=== PATIENT | female | born 1950 | race Caucasian/White ===

== ENCOUNTER → 2016-11-08 | Outpatient (CLI) | payer OTHER ==
--- NOTE | 2016-11-08 11:36 | REPMRS ---
Patient History The patient states she had a clinical breast exam in Patient is postmenopausal. Family history of breast cancer in sister at age 40, breast cancer in maternal aunt at age 50 or over, prostate cancer in brother at age 48, and breast cancer in daughter at age 34. Took hormonal contraceptives for 1 month. Digital Woman Screen Mammo: November 08, 2016 - Exam #: [id number] Bilateral CC and MLO view(s) were taken. Technologist: Dinah Anderson, Technologist Prior study comparison: November 02, 2015, digital bilateral screening mammo, performed at [facility]. October 01, 2014, bilateral bilat screen digital mammo, performed at [facility] ([facility]). FINDINGS: There are scattered fibroglandular densities. There has been no change in the appearance of the mammogram from the prior studies. There is a mild amount of residual fibroglandular tissue which is fairly symmetric. There is no interval development of dominant mass, architectural distortion, or clustered microcalcification suggestive of malignancy. ASSESSMENT: BI-RADS/ACR category 1 mammogram. Negative. Recommendation Routine screening mammogram in 1 year (for women over age 40). This mammogram was interpreted with the aid of an FDA-approved computer-aided dectection system. Electronically Signed By: Andrew Wasserman MD 11/08/16 [id number]
== END ==
LOC: M WHC 10:49
PROVIDERS: ATTEND Family Medicine
DX: Z12.31 Encounter for screening mammogram for malignant neoplasm of breast (principal)

== ENCOUNTER 2016-12-29 18:22 | Day surgery (SDC) | payer OTHER ==
[~2016-12-29] VITALS: Ht 160 cm; Wt 65.8 kg
[2016-12-29] MEDS ORDERED: MORPHINE 4 MG/ML 1ML SYRINGE As Ordered ONE ×2 (18:51→19:41)
[2016-12-29 19:22] LABS: MEAN CORPUSCULAR HEMOGLOBIN 29.1 pg (27.0-33.0); MEAN CORPUSCULAR HGB CONC 34.2 g/dl (32.0-36.5); MEAN CORPUSCULAR VOLUME 85.1 fl (80.0-96.0); RED CELL DISTRIBUTION WIDTH 12.8 % (11.5-14.5); WHITE BLOOD COUNT 8.4 K/mm3 (4.0-10.0)
--- NOTE | 2016-12-29 19:26 | REP ---
Clinical: Trauma. Technique: AP and lateral views. Findings: There are fractures involving the proximal fibular diaphysis and distal tibial diaphysis. No subcutaneous emphysema or foreign body. Impression: Fractures of the proximal fibular and distal tibial shafts. Signed by Lee Tellez MD 12/29/2016 07:18 P
--- NOTE | 2016-12-29 19:27 | REP ---
Clinical: Trauma. Technique: AP and lateral views of the right ankle. Findings: There is an oblique fracture of the distal tibial diaphysis with approximately 11 mm of displacement. No subcutaneous emphysema or radiodense foreign body. Impression: Oblique fracture of the distal tibial diaphysis. Signed by Lee Tellez MD 12/29/2016 07:19 P
--- NOTE | 2016-12-29 19:28 | REP ---
Clinical: Trauma. Technique: AP and lateral views of the right knee. Findings: There is a comminuted nondisplaced fracture of the proximal fibular diaphysis. Age-related changes at the knee joint noted. No subcutaneous emphysema or radiodense foreign body. Impression: Comminuted nondisplaced fracture of the proximal fibular diaphysis. Signed by Lee Tellez MD 12/29/2016 07:20 P
[2016-12-29 19:34] LABS: ANION GAP 12 MEQ/L (8-16); BLOOD UREA NITROGEN 19 MG/DL (7-18); CALCIUM LEVEL 9.7 MG/DL (8.8-10.2); CARBON DIOXIDE LEVEL 24 MEQ/L (21-32); CHLORIDE LEVEL 104 MEQ/L (98-107); CREATININE FOR GFR 0.75 MG/DL (0.55-1.02); GLOMERULAR FILTRATION RATE > 60.0 (>45); GLUCOSE, FASTING 124 MG/DL (80-110); POTASSIUM SERUM 3.3 MEQ/L (3.5-5.1); SODIUM LEVEL 140 MEQ/L (136-145)
--- NOTE | 2016-12-29 19:46 | REP ---
Clinical: Preoperative assessment . Comparison: None . Findings: The mediastinum and cardiac silhouette are stable and within normal limits for portable technique. The lung alvarado are clear without acute consolidation, effusion, or pneumothorax. Skeletal structures are intact. Impression: Normal portable chest x-ray Signed by Lee Tellez MD 12/29/2016 07:37 P
[2016-12-29] MEDS ORDERED: ATEN25TA PO (19:59)
[2016-12-29] MEDS ORDERED: DRIS50002 PO (19:59)
[2016-12-29] MEDS ORDERED: KCL 10MEQ IN STERILE WATER 100ML As Ordered ONE (19:59)
[2016-12-29] MEDS ORDERED: POTA20TA PO ×2 (19:59)
[2016-12-29] MEDS ORDERED: AMLO5TAB2 PO (20:00)
[2016-12-29] MEDS ORDERED: CHLO25TA PO (20:00)
[2016-12-29] MEDS ORDERED: ATOR1TAB19 PO (20:00)
[2016-12-29] MEDS ORDERED: ASPI1TAB PO (20:00)
[2016-12-29] MEDS ORDERED: FISH1000 PO (20:03)
[2016-12-29] MEDS ORDERED: CO Q1CAP PO (20:03)
[2016-12-29] MEDS ORDERED: VITA500T88 PO (20:03)
[2016-12-29] MEDS ORDERED: VITMTA PO (20:03)
[2016-12-29] MEDS ORDERED: CALC600T10 PO (20:03)
[2016-12-29] MEDS ORDERED: POTASSIUM CHLORIDE 10 MEQ SR TABLET As Ordered ONE (20:13)
--- NOTE | 2016-12-29 20:33 | EDDOCDS ---
Nurse's Notes [facility] Name: Britta Mahmood Age: 66 yrs Sex: Female : 1950 Arrival Date: 12/29/2016 Time: 18:22 Bed 10 Private MD: Diagnosis: Displaced oblique fracture of shaft of right tibia-distal;Fracture of shaft of fibula-proximal, right Presentation: 12/29 18:42 Presenting complaint: EMS states: Patient was bowling and her right leg went one way js13 and she went the other. Patients right lower leg hurting. No immobilizer applied. Adult Sepsis Screening: The patient does not have new or worsening altered mentation. Patient's respiratory rate is less than 22. Systolic blood pressure is greater than 100. Patient has a qSOFA score of 0- Negative Sepsis Screen. Suicide/Homicide risk assessment- the patient denies having any suicidal and/or homicidal ideations and does not present with any other emotional, behavioral or mental health complaints. Status: Patient is not a service order dispatcher or dependent. Transition of care: patient was not received from another setting of care. Care prior to arrival: See EMS report. 18:42 Acuity: RK Level 3 js13 18:42 Method Of Arrival: Ambulance js13 Triage Assessment: 18:50 General: Appears uncomfortable, Behavior is appropriate for age, cooperative. Pain: js13 Location: right leg Pain currently is 8 out of 10 on a pain scale. Neurological: Level of Consciousness is awake, alert, Oriented to person, place, time. Respiratory: Airway is patent Respiratory effort is even, unlabored, Respiratory pattern is regular, symmetrical. Derm: Skin is pink, warm & dry. Musculoskeletal: Circulation, motion, and sensation intact Range of motion limited in right knee and right ankle Bony deformity noted of right leg. Historical: - Allergies: no known allergies; - Home Meds: 1. Klor-Con M20 20 mEq Oral TbTQ 1 tab 2 times per day 2. atenolol 25 mg Oral tab 1 tab once daily 3. Vitamin D Oral 50,000 unit monthly 4. chlorthalidone 25 mg Oral tab 1 tab once daily 5. amlodipine 5 mg Oral tab 1 tab once daily 6. atorvastatin 10 mg oral tab 1 tab once daily 7. aspirin 81 mg Oral tab 1 tab once daily 8. Vitamin C 500 mg Oral cpER daily 9. multivitamin Oral tab daily 10. Fish Oil 1,000 mg Oral cap twice a day 11. Calci-Chew 500 mg calcium (1,250 mg) Oral chew 12. CoQ-10 100 mg oral cap 2 tab daily - PMHx: Hypertension; Hypercholesterolemia; osteopenia; - PSHx: Adenoidectomy; Tonsillectomy; - Social history: Smoking status: Patient states was never smoker of tobacco. No barriers to communication noted, The patient speaks fluent Amharic. - Family history: Not pertinent. - : The pt / caregiver states he / she is not on anticoagulants. Home medication list is obtained from the patient. - Exposure Risk Screening:: None identified. Screenin:54 Screening information is obtained from the patient. Fall risk: At risk due to gait js13 disturbance, injury. Assistance ADL's: requires no assistance with activities of daily living. Abuse/DV Screen: The patient / caregiver reports he/she is: not in a situation that causes fear, pain or injury. Nutritional screening: No deficits noted. Advance Directives: There is no active DNR order. home support is adequate. Assessment: 19:48 General: Appears in no apparent distress, comfortable, Behavior is cooperative. mlc General: IV fluids infusing per order. Pain: Location: right rodríguez Pain currently is 5 out of 10 on a pain scale. Neurological: Level of Consciousness is awake, alert, obeys commands, Oriented to person, place, time. Respiratory: Airway is patent Respiratory effort is even, unlabored, Respiratory pattern is regular. Derm: Skin is normal, Swollen area noted on right rodríguez and anterior aspect of right ankle. Musculoskeletal: Bony deformity noted of right rodríguez. Vital Signs: 18:34 BP 152 / 72; Pulse 72; Resp 18; Temp 98.6(O); Pulse Ox 100% on R/A; Weight 65.77 kg; dem1 Height 5 ft. 3 in. (160.02 cm); Pain 9/10; 19:39 BP 142 / 66; Pulse 63; Resp 18; Pulse Ox 98% ; Pain 5/10; mlc 20:28 BP 137 / 65; Pulse 62; Resp 18; Temp 98.3(O); Pulse Ox 96% on R/A; Pain 5/10; joel 18:34 Body Mass Index 25.69 (65.77 kg, 160.02 cm) dem1 Vitals: 18:34 Log In Time N/A - ambulance arrival. dem1 ED Course: 18:23 Patient visited by Margarita Carter, Engraver Machine. deg 18:23 Patient moved to Waiting deg 18:24 Ivis Conn,JUSTYN is Primary Nurse. deg 18:24 Patient moved to 10 deg 18:29 [facility] Cain FNP [facility] le 18:35 Patient visited by Dominique Butler. dem1 18:37 Patient visited by Suzy Cain FNP. le 18:37 Patient visited by Suzy Cain FNP. le 18:44 Triage Initiated js13 18:54 The patient / caregiver is instructed regarding the plan of care and ED course. js13 18:54 Inserted saline lock: 18 gauge in left antecubital area and blood collected. The js13 patient tolerated the procedure well. No procedures done that require assistance. Labs drawn. (by ED staff). Sent per order to lab. 18:55 Patient visited by Ivis Conn RN. js13 18:55 [facility] Payment Agreement was scanned into [employer] and attached to record. ks16 18:59 Patient name changed from Britta\S\\S\Wood\S\ to Britta\S\ \S\Wood. EDMS 19:23 Sheridan oGnzalez RN is Primary Nurse. mlc 19:26 EKG done. (by ED staff). Reviewed by Suzy SORIA. mdr 19:27 Patient visited by Tab Greco PCA. mdr 19:34 Ag Stoll is Hospitalizing Provider. le 19:44 Tibia/Fibula Returned. EDMS 19:44 Ankle, Ap-Lat Returned. EDMS 19:44 Knee, Ap, Lat Returned. EDMS 19:50 Patient visited by Sheridan Gonzalez RN. mlc 19:55 Quentin Escoto DO is Attending Physician. cs11 20:14 Admission Orders was scanned into [employer] and attached to record. kb5 Administered Medications: 18:53 Drug: morphine 4 mg [morphine 4 mg/mL intravenous cartridge (1 mL)] Route: IVP; Site: js13 left antecubital; 19:39 Follow up: BP 142 / 66; Pulse 63 bpm; Resp 18 bpm; Pulse Ox 98% ; Pain 5/10 Adult; mlc Response: Pain is decreased 19:48 Drug: morphine 4 mg [morphine 4 mg/mL intravenous cartridge (1 mL)] Route: IVP; Site: mlc left antecubital; 19:48 Drug: NS 0.9% 1000 ml [sodium chloride 0.9 % intravenous solution] Route: IV; Rate: 100 mlc mL/hr; Site: left antecubital; 19:58 CANCELLED (Other Intervention Used): Potassium Chloride in 100cc sterile water 10 mEq le IV at 100 mL/hr once over 1 hrs 20:18 Drug: Potassium Chloride 20 mEq [potassium chloride ER 10 mEq tablet,extended release mlc (2 tabs)] Route: PO; Order Results: Lab Order: CBC; SPEC'M 12/29/16 18:41 Test: WHITE BLOOD COUNT; Value: 8.4; Range: 4.0-10.0; Units: K/mm3; Status: F Test: RED BLOOD COUNT; Value: 4.91; Range: 4.00-5.40; Units: M/mm3; Status: F Test: HEMOGLOBIN; Value: 14.3; Range: 12.0-16.0; Units: g/dl; Status: F Test: HEMATOCRIT; Value: 41.8; Range: 36.0-47.0; Units: %; Status: F Test: MEAN CORPUSCULAR VOLUME; Value: 85.1; Range: 80.0-96.0; Units: fl; Status: F Test: MEAN CORPUSCULAR HEMOGLOBIN; Value: 29.1; Range: 27.0-33.0; Units: pg; Status: F Test: MEAN CORPUSCULAR HGB CONC; Value: 34.2; Range: 32.0-36.5; Units: g/dl; Status: F Test: RED CELL DISTRIBUTION WIDTH; Value: 12.8; Range: 11.5-14.5; Units: %; Status: F Test: PLATELET COUNT, AUTOMATED; Value: 251; Range: 150-450; Units: k/mm3; Status: F Lab Order: BMP; SPEC'M 12/29/16 18:41 Test: GLUCOSE, FASTING; Value: 124; Range: 80-110; Abnormal: Above high normal; Units: MG/DL; Status: F Test: BLOOD UREA NITROGEN; Value: 19; Range: 7-18; Abnormal: Above high normal; Units: MG/DL; Status: F Test: CREATININE FOR GFR; Value: 0.75; Range: 0.55-1.02; Units: MG/DL; Status: F Test: GLOMERULAR FILTRATION RATE; Value: > 60.0; Range: >45; Status: F Test: SODIUM LEVEL; Value: 140; Range: 136-145; Units: MEQ/L; Status: F Test: POTASSIUM SERUM; Value: 3.3; Range: 3.5-5.1; Abnormal: Below low normal; Units: MEQ/L; Status: F Test: CHLORIDE LEVEL; Value: 104; Range: 98-107; Units: MEQ/L; Status: F Test: CARBON DIOXIDE LEVEL; Value: 24; Range: 21-32; Units: MEQ/L; Status: F Test: ANION GAP; Value: 12; Range: 8-16; Units: MEQ/L; Status: F Test: CALCIUM LEVEL; Value: 9.7; Range: 8.8-10.2; Units: MG/DL; Status: F Test Note: ; Units are mL/min/1.73 m2 Chronic Kidney Disease Staging per NKF: Stage I & II GFR >=60 Normal to Mildly Decreased Stage III GFR 30-59 Moderately Decreased Stage IV GFR 15-29 Severely Decreased Stage V GFR <15 Very Little GFR Left ESRD GFR <15 on [employer] SUPERVISOR Radiology Order: Tibia/Fibula Test: Tibia/Fibula REASON FOR EXAMINATION: Trauma; Clinical: Trauma.; ; Technique: AP and lateral views.; ; Findings:; There are fractures involving the proximal fibular diaphysis and distal tibial; diaphysis. No subcutaneous emphysema or foreign body.; ; Impression:; Fractures of the proximal fibular and distal tibial shafts.; ; ; Signed by; Lee Tellez MD 12/29/2016 07:18 P; Radiology Order: Knee, Ap, Lat Test: Knee, Ap, Lat REASON FOR EXAMINATION: Trauma; Clinical: Trauma.; ; Technique: AP and lateral views of the right knee.; ; Findings:; There is a comminuted nondisplaced fracture of the proximal fibular diaphysis.; Age-related changes at the knee joint noted. No subcutaneous emphysema or; radiodense foreign body.; ; Impression:; Comminuted nondisplaced fracture of the proximal fibular diaphysis.; ; ; Signed by; Lee Tellez MD 12/29/2016 07:20 P; Radiology Order: Ankle, Ap-Lat Test: Ankle, Ap-Lat REASON FOR EXAMINATION: Trauma; Clinical: Trauma.; ; Technique: AP and lateral views of the right ankle.; ; Findings:; There is an oblique fracture of the distal tibial diaphysis with approximately 11; mm of displacement. No subcutaneous emphysema or radiodense foreign body.; ; Impression:; Oblique fracture of the distal tibial diaphysis.; ; ; Signed by; Lee Tellez MD 12/29/2016 07:19 P; Outcome: 19:34 Decision to Hospitalize by Provider. le 20:28 Discharge Assessment: patient administered narcotics - yes. Patient was admitted to the [facility] or transferred to another facility. The following High Risk Discharge criteria are identified: None. Admitted to OR accompanied by nurse, via stretcher, with chart. Condition: unchanged. No special radiology studies were completed. Property :Personal belongings accompany Pt. 20:33 Patient left the ED. nov Signatures: Dispatcher [employer] EDMS Margarita Carter, Engraver Machine Unit deg Kathy Mott RN RN jan Bancroft, Kristopher, VENEER SAWYER VENEER SAWYER kb5 Suzy Cain, TURBINE TECHNICIAN TURBINE TECHNICIAN Dominique Vázquez1 Ivis Conn,RN RN js13 Quentin Escoto, DO cs11 Sheridan Gonzalez RN RN mlc Rick, Mitchell, VENEER SAWYER VENEER SAWYER Snehal Ho, Reg Reg ks16 MTDD
--- NOTE | 2016-12-29 20:33 | EDDOCDS ---
Physician Documentation [facility] Name: Britta Mahmood Age: 66 yrs Sex: Female : 1950 Arrival Date: 12/29/2016 Time: 18:22 Bed 10 Private MD: Disposition: 12/29/16 19:34 Hospitalization ordered by Ag Stoll for Observation. Preliminary diagnosis are Displaced oblique fracture of shaft of right tibia - distal, Fracture of shaft of fibula - proximal, right. - Bed requested for Admit. - Status is Observation. joel - Condition is Stable. - Problem is new. - Symptoms are unchanged. Historical: - Allergies: no known allergies; - Home Meds: 1. Klor-Con M20 20 mEq Oral TbTQ 1 tab 2 times per day 2. atenolol 25 mg Oral tab 1 tab once daily 3. Vitamin D Oral 50,000 unit monthly 4. chlorthalidone 25 mg Oral tab 1 tab once daily 5. amlodipine 5 mg Oral tab 1 tab once daily 6. atorvastatin 10 mg oral tab 1 tab once daily 7. aspirin 81 mg Oral tab 1 tab once daily 8. Vitamin C 500 mg Oral cpER daily 9. multivitamin Oral tab daily 10. Fish Oil 1,000 mg Oral cap twice a day 11. Calci-Chew 500 mg calcium (1,250 mg) Oral chew 12. CoQ-10 100 mg oral cap 2 tab daily - PMHx: Hypertension; Hypercholesterolemia; osteopenia; - PSHx: Adenoidectomy; Tonsillectomy; - Social history: Smoking status: Patient states was never smoker of tobacco. No barriers to communication noted, The patient speaks fluent Chinese. - Family history: Not pertinent. - : The pt / caregiver states he / she is not on anticoagulants. Home medication list is obtained from the patient. - Exposure Risk Screening:: None identified. Vital Signs: 12/29 18:34 BP 152 / 72; Pulse 72; Resp 18; Temp 98.6(O); Pulse Ox 100% on R/A; Weight 65.77 kg / dem1 145 lbs; Height 5 ft. 3 in. (160.02 cm); Pain 9/10; 19:39 BP 142 / 66; Pulse 63; Resp 18; Pulse Ox 98% ; Pain 5/10; mlc 20:28 BP 137 / 65; Pulse 62; Resp 18; Temp 98.3(O); Pulse Ox 96% on R/A; Pain 5/10; joel 18:34 Body Mass Index 25.69 (65.77 kg, 160.02 cm) dem1 MDM: 18:31 IV Saline Lock ordered. le 18:31 morphine 4 mg IVP every 15 minutes; Document pain score/vitals after each dose (Hold if le SBP < 90mmHg) x2 ordered. 18:32 Tibia/Fibula Ordered. EDMS 18:54 Financial registration complete. ks16 18:55 [facility] Payment Agreement was scanned into [employer] and attached to record. ks16 19:12 Knee, Ap, Lat Ordered. EDMS 19:12 Ankle, Ap-Lat Ordered. EDMS 19:15 Undress patient ordered. le 19:16 ECG WITH READING ER PHYS+CARDIAG ordered. EDMS 19:16 CBC Ordered. EDMS 19:16 BMP Ordered. EDMS 19:17 Chest, 1 View Ordered. EDMS 19:37 BMP Reviewed. le 19:37 CBC Reviewed. le 19:38 NS 0.9% 1000 ml IV at 100 mL/hr continuous ordered. le 19:58 Potassium Chloride Extended Release Tablet 20 mEq PO once ordered. le 20:14 Admission Orders was scanned into [employer] and attached to record. kb5 Administered Medications: 18:53 Drug: morphine 4 mg [morphine 4 mg/mL intravenous cartridge (1 mL)] Route: IVP; Site: js13 left antecubital; 19:39 Follow up: BP 142 / 66; Pulse 63 bpm; Resp 18 bpm; Pulse Ox 98% ; Pain 5/10 Adult; mlc Response: Pain is decreased 19:48 Drug: morphine 4 mg [morphine 4 mg/mL intravenous cartridge (1 mL)] Route: IVP; Site: mlc left antecubital; 19:48 Drug: NS 0.9% 1000 ml [sodium chloride 0.9 % intravenous solution] Route: IV; Rate: 100 mlc mL/hr; Site: left antecubital; 19:58 CANCELLED (Other Intervention Used): Potassium Chloride in 100cc sterile water 10 mEq le IV at 100 mL/hr once over 1 hrs 20:18 Drug: Potassium Chloride 20 mEq [potassium chloride ER 10 mEq tablet,extended release mlc (2 tabs)] Route: PO; Signatures: Dispatcher [employer] EDMS Kathy Mott RN RN jan Bancroft, Nomi, SENIOR MAJOR GIFTS OFFICER SENIOR MAJOR GIFTS OFFICER kb5 Suzy Cain, IT SUPPORT CONSULTANT IT SUPPORT CONSULTANT Ivis MccainRN RN Quentin Kingsley, DO DO cs11 Snehal Altman, Reg Reg ks16 Sheridan Gonzalez RN [facility] The chart was reviewed and I authenticate all verbal orders and agree with the evaluation and treatment provided.Corrections: (The following items were deleted from the chart) 19:12 18:32 Knee, complete+XR ordered. EDMS EDMS 19:13 18:32 Ankle, complete+XR ordered. EDMS EDMS 19:58 19:56 Potassium Chloride in 100cc sterile water 10 mEq IV at 100 mL/hr once over 1 hrs le ordered. cs11 19:58 19:57 Potassium Chloride in 100cc sterile water 10 mEq IV at 100 mL/hr once over 1 hrs le ordered. le Attachments: 18:55 [facility] Payment Agreement ks16 20:14 Admission Orders kb5 MTDD
[2016-12-29] MEDS ORDERED: PROPOFOL 200 MG/20 ML VIAL As Ordered ONE ×2 (20:37→22:01)
[2016-12-29] MEDS ORDERED: fentaNYL 100 MCG/2 ML INJECTION (J3010) As Ordered ONE (20:37)
[2016-12-29] MEDS ORDERED: LIDOCAINE 2% INJ 100 MG/5 ML SDV (FOR ANES.) As Ordered ONE (20:37)
[2016-12-29] MEDS ORDERED: MIDAZOLAM INJ 2 MG/2 ML VIAL (J2250) As Ordered ONE (20:37)
[2016-12-29] MEDS ORDERED: ceFAZolin 1GM INJ (J0690) As Ordered ONE (20:47)
[2016-12-29] MEDS ORDERED: ASPIRIN 81 MG CHEW TABLET PO SCH (21:00)
[2016-12-29] MEDS ORDERED: ATORVASTATIN 10 MG TAB PO SCH (21:00)
[2016-12-29] MEDS ORDERED: amLODIPine 5 MG TAB PO SCH (21:00)
--- NOTE | 2016-12-29 21:33 | HPE ---
DATE OF ADMISSION: 12/29/2016 REASON FOR ADMISSION: Right tibia and fibula fracture. HISTORY OF PRESENT ILLNESS: She is a 66-year-old female who was bowling in [place], twisted her right leg, fell and complained of soreness, pain and could feel the bones moving. Transferred by ambulance from the [facility] to [facility], evaluated by the nurse practitioner in the emergency room and I was called because she was found to have a tibia and fibula fracture and to treat that injury. She only complains of isolated soreness in her right lower leg. Does not complain of any other injury. There is no loss of consciousness. Did not strike her head. Does not complain of numbness or tingling in her toes at all, just localized pain in the right leg. PAST MEDICAL HISTORY: Her past medical history is otherwise significant for high blood pressure and hypercholesterolemia and osteopenia. MEDICATIONS: - Klor-Con 20 mEq tablets one twice a day - atenolol 25 mg once a day - chlorthalidone 25 mg once a day - amlodipine 5 mg once a day - atorvastatin 10 mg once a day - baby aspirin one tablet once a day - vitamin C - multivitamin - fish oil - calcium - vitamin D - CoQ PAST SURGICAL HISTORY: She has had her tonsils and adenoids removed. She has had a dilatation and curettage and she has had a lymph node biopsy. Dr. Martinez cares for her medically. SOCIAL HISTORY: She is . She is here with her . She does not smoke or drink alcohol excessively. She lives up in the [place] area. Otherwise, she is healthy. When I examined her, she is very pleasant, alert female lying on the stretcher. She complains only of isolated soreness in her right leg. Blood pressure is 152/72, pulse 72, respirations 18, temperature 98.6, oxygen saturation is 100% on room air. She is 65.77 kg, 5 feet 3 inches tall, Body Mass Index (BMI) is 25.69. HEENT: Examination is normal. Normocephalic, atraumatic. Extraocular muscles are grossly normal. No evidence of any trauma. Upper extremities were atraumatic and without pain, tenderness, swelling or crepitance of her shoulders, arms, elbows, wrists or hands. ABDOMEN: Nontender. CHEST: Chest wall nontender. Chest was clear to auscultation. HEART: Regular. I did not detect a murmur. EXTREMITIES: Right lower extremity was tender with just mild swelling of the leg. The compartments were soft. The skin was intact. She had a good palpable dorsalis pedis pulse. She could actually dorsiflex or plantar flex her toes without excessive pain. Sensation was intact. Good capillary refill. LABORATORY DATA: White count was 8.4, hematocrit 41.8, platelets 251. Sodium was 140, potassium 3.3, chloride 104, bicarbonate 24, BUN 19, creatinine 0.75, glucose 124, calcium 9.7. X-rays of the right tibia and fibula show an oblique, distal one-third spiral tibia fracture with a proximal fibula fracture with hyperextension deformity and displacement. Her EKG was normal. IMPRESSION: Right tibia and fibula fracture in a 66-year-old otherwise fairly healthy female. I talked to her about the options of closed treatment with a cast or operative intervention, such as an IM nail or plate and screws. After some discussion about the plus or minus of casting versus surgery, she understands the cast treatment would be difficult to manage this in terms of getting a good anatomic reduction with prolonged immobilization with a cast, however, surgery would help us get this more anatomically reduced, but it introduces the risk of surgical intervention, such as infection, damage to nerves, blood vessels, anesthetic complications, amongst others. After some discussion back and forth about that she is agreeable to a surgical intervention in hopes of getting a better anatomic reduction and avoid the prolonged the use of a long leg cast. I would prefer a plate and screws rather than IM nail for this distal one-third fractures because of the better chance of getting more anatomic reduction. There is always the risk of damage to nerves and blood vessels, amongst others, and she understands that and signed the consent, witnessed by the nurse, and we planned to proceed to the operating room when it is available. She has been nothing by mouth since noon, so it has been eight hours. She does have a slightly low potassium at 3.3. I discussed this with the hospitalist and they think that this should be acceptable. We are going to give her 20 mEq orally of potassium right now in the emergency room, and we plan to give her 2 grams of Kefzol intravenously perioperatively.
[2016-12-29] MEDS ORDERED: ONDANSETRON 4MG/2ML VIAL (J2405) IV PRN ×2 (23:15→23:45)
[2016-12-29] MEDS ORDERED: fentaNYL 100 MCG/2 ML INJECTION (J3010) IV PRN (23:15)
[2016-12-29] MEDS ORDERED: LR 1,000 ML IV SCH (23:15)
[2016-12-29 23:30] VITALS: BP 164/76
[2016-12-29] MEDS: LR 1,000 ML IV SCH (23:45)
[2016-12-29] MEDS ORDERED: PERCOCET 5MG/325MG TAB PO PRN (23:45)
[2016-12-30] VITALS (8 sets, daily range): BP systolic 108–153; BP diastolic 56–70
[2016-12-30] MEDS: PERCOCET 5MG/325MG TAB PO PRN ×4 (00:20→12:47)
[2016-12-30] MEDS: MORPHINE 4 MG/ML 1ML SYRINGE IV PRN ×2 (03:24→14:41)
--- NOTE | 2016-12-30 05:25 | RO ---
DATE OF PROCEDURE: 12/29/2016 PREOPERATIVE DIAGNOSIS: Right unstable distal spiral tibia/fibula fracture. POSTOPERATIVE DIAGNOSIS: Right unstable distal spiral tibia/fibula fracture. PROCEDURE: Open reduction, internal fixation of a right tibia/fibula fracture using a synthes tibial locking plate. SURGEON: Gagan Booth MD SHADOWGRAPH SCALE OPERATOR: ANESTHESIA: Spinal. COMPLICATIONS: None. ESTIMATED BLOOD LOSS: Less than 50 mL. SPECIMENS: None. DESCRIPTION OF PROCEDURE: Antibiotics were given intravenously, preoperatively , then a successful spinal anesthetic was introduced. Straight catheter was placed, then removed. A tourniquet was placed on the right upper thigh and not inflated. Right lower extremity was then prepped and draped in the usual sterile fashion and elevated. Then, after appropriate time out, the tourniquet was inflated. An anterior incision was then made slightly curved medially. Bovie cautery was used to coagulate crossing vessels. Hematoma at the fracture site was identified and the fracture site explored and I very carefully did not violate any of the periosteum, but I was able to irrigate out the hematoma at the fracture site. Several small comminuted pieces of cortical bone were removed and then an open anatomic reduction was then performed and held with the bone clamp. Fluoroscopic guidance imaging in AP and lateral planes confirmed good reduction. Then, I placed an interfragmentary compression screw using the 3.5, then the 2.5 drill from anterior distal to posterior proximal with excellent purchase. I then chose an 8-hole distal tibial locking plate and it fit nicely across the fracture site with no need to contour the plate at all. I clamped the plate across the fracture site and got fluoroscopic imaging confirming good position. Then, I filled two screw holes on either side of the fracture site with the standard 3.5 cortical screws, then the proximal screw holes were filled with 3.5 cortical screws, then distally I filled several holes with locking screws. The distal tab was left open. A nice stable construct was noted. Fluoroscopic imaging at this point in the AP and lateral planes confirmed we had good reduction of the fracture and good placement of the hardware and screws. Copiously irrigated the wound. The tourniquet was released and we closed the deep subdermal tissues with interrupted #2-0 PDS suture. Skin was closed with shelley covered by Adaptic, dry sterile bulky dressing and then a short leg well-padded plaster cast was applied. Then, she was transferred to the recovery room in stable condition. There were intraoperative complications. CARLIN
[2016-12-30] MEDS ORDERED: PERC5TAB6 PO (06:45)
--- NOTE | 2016-12-30 08:04 | REP ---
Clinical: Fracture. Technique: Intraoperative fluoroscopic imaging. Findings: Images demonstrate the patient to be status post open reduction and fixation for distal tibial fracture. Satisfactory alignment and hardware placement noted. Total fluoroscopic time 14 seconds. Impression: Status post open reduction and fixation for distal tibial fracture. Signed by Lee Tellez MD 12/30/2016 07:55 A
[2016-12-30] MEDS ORDERED: ASPIRIN 81 MG CHEW TABLET PO SCH (09:00)
[2016-12-30] MEDS ORDERED: CHLORTHALIDONE 25 MG TAB PO SCH (09:00)
[2016-12-30] MEDS: LR 1,000 ML IV SCH (09:48)
--- NOTE | 2016-12-30 15:20 | ECGEPIP ---
Stationary ECG Study [facility] - ED Test Date: 2016-12-29 Pat Name: SABA WHITAKER Department: Room: [place] [address] Gender: F Social Work Coordinator: mr : 1950 Requested By: VICKIE SORIA Order Number: [id number] Reading MD: Corry Davis Measurements Intervals [place] Rate: 62 P: 60 NC: 172 QRS: 20 QRSD: 94 T: 6 QT: 399 QTc: 408 Interpretive Statements SINUS RHYTHM NSTTW ABNORMALITY NO PRIOR FOR COMPARISON Electronically Signed On 12-30-2016 15:19:58 EST by Corry Davis
--- NOTE | 2016-12-31 21:33 | EDDOCDS ---
Physician Documentation [facility] Name: Britta Mahmood Age: 66 yrs Sex: Female : 1950 Arrival Date: 12/29/2016 Time: 18:22 Bed 10 Private MD: Disposition: 12/29/16 19:34 Hospitalization ordered by Ag Stoll for Observation. Preliminary diagnosis are Displaced oblique fracture of shaft of right tibia - distal, Fracture of shaft of fibula - proximal, right. - Bed requested for Admit. - Status is Observation. joel - Condition is Stable. - Problem is new. - Symptoms are unchanged. Historical: - Allergies: no known allergies; - Home Meds: 1. Klor-Con M20 20 mEq Oral TbTQ 1 tab 2 times per day 2. atenolol 25 mg Oral tab 1 tab once daily 3. Vitamin D Oral 50,000 unit monthly 4. chlorthalidone 25 mg Oral tab 1 tab once daily 5. amlodipine 5 mg Oral tab 1 tab once daily 6. atorvastatin 10 mg oral tab 1 tab once daily 7. aspirin 81 mg Oral tab 1 tab once daily 8. Vitamin C 500 mg Oral cpER daily 9. multivitamin Oral tab daily 10. Fish Oil 1,000 mg Oral cap twice a day 11. Calci-Chew 500 mg calcium (1,250 mg) Oral chew 12. CoQ-10 100 mg oral cap 2 tab daily - PMHx: Hypertension; Hypercholesterolemia; osteopenia; - PSHx: Adenoidectomy; Tonsillectomy; - Social history: Smoking status: Patient states was never smoker of tobacco. No barriers to communication noted, The patient speaks fluent Macedonian. - Family history: Not pertinent. - : The pt / caregiver states he / she is not on anticoagulants. Home medication list is obtained from the patient. - Exposure Risk Screening:: None identified. Vital Signs: 12/29 18:34 BP 152 / 72; Pulse 72; Resp 18; Temp 98.6(O); Pulse Ox 100% on R/A; Weight 65.77 kg / dem1 145 lbs; Height 5 ft. 3 in. (160.02 cm); Pain 9/10; 19:39 BP 142 / 66; Pulse 63; Resp 18; Pulse Ox 98% ; Pain 5/10; mlc 20:28 BP 137 / 65; Pulse 62; Resp 18; Temp 98.3(O); Pulse Ox 96% on R/A; Pain 5/10; nov 18:34 Body Mass Index 25.69 (65.77 kg, 160.02 cm) dem1 MDM: 18:31 IV Saline Lock ordered. le 18:31 morphine 4 mg IVP every 15 minutes; Document pain score/vitals after each dose (Hold if le SBP < 90mmHg) x2 ordered. 18:32 Tibia/Fibula Ordered. EDMS 18:54 Financial registration complete. ks16 18:55 [facility] Payment Agreement was scanned into [employer] and attached to record. ks16 19:12 Knee, Ap, Lat Ordered. EDMS 19:12 Ankle, Ap-Lat Ordered. EDMS 19:15 Undress patient ordered. le 19:16 ECG WITH READING ER PHYS+CARDIAG ordered. EDMS 19:16 CBC Ordered. EDMS 19:16 BMP Ordered. EDMS 19:17 Chest, 1 View Ordered. EDMS 19:37 BMP Reviewed. le 19:37 CBC Reviewed. le 19:38 NS 0.9% 1000 ml IV at 100 mL/hr continuous ordered. le 19:58 Potassium Chloride Extended Release Tablet 20 mEq PO once ordered. le 20:14 Admission Orders was scanned into [employer] and attached to record. kb5 20:37 Tibia, Fibula lower leg Ordered. EDMS 12/30 21:11 T-Sheet-- Draft Copy was scanned into [employer] and attached to record. klr 22:13 ECG/EKG was scanned into [employer] and attached to record. klr 12/31 09:39 REGULAR DIET ordered. EDMS 09:41 PHYSICAL THERAPY EVAL ONLY ordered. EDMS Administered Medications: 12/29 18:53 Drug: morphine 4 mg [morphine 4 mg/mL intravenous cartridge (1 mL)] Route: IVP; Site: js13 left antecubital; 19:39 Follow up: BP 142 / 66; Pulse 63 bpm; Resp 18 bpm; Pulse Ox 98% ; Pain 5/10 Adult; mlc Response: Pain is decreased 19:48 Drug: morphine 4 mg [morphine 4 mg/mL intravenous cartridge (1 mL)] Route: IVP; Site: mlc left antecubital; 19:48 Drug: NS 0.9% 1000 ml [sodium chloride 0.9 % intravenous solution] Route: IV; Rate: 100 mlc mL/hr; Site: left antecubital; 19:58 CANCELLED (Other Intervention Used): Potassium Chloride in 100cc sterile water 10 mEq le IV at 100 mL/hr once over 1 hrs 20:18 Drug: Potassium Chloride 20 mEq [potassium chloride ER 10 mEq tablet,extended release mlc (2 tabs)] Route: PO; Signatures: Dispatcher [employer] EDMS Kathy Mott RN RN jan Bancroft, Kristopher, LETTERER LETTERER kb5 Suzy Cain, LIQUID SUGAR FORTIFIER LIQUID SUGAR FORTIFIER Ivis Mccain,RN RN Quentin Kingsley, DO DO cs11 Snehal Altman, Reg Reg ks16 Mona Guajardo Mandy RN mlc The chart was reviewed and I authenticate all verbal orders and agree with the evaluation and treatment provided.Corrections: (The following items were deleted from the chart) 19:12 18:32 Knee, complete+XR ordered. EDMS EDMS 19:13 18:32 Ankle, complete+XR ordered. EDDE EDMS 19:58 19:56 Potassium Chloride in 100cc sterile water 10 mEq IV at 100 mL/hr once over 1 hrs le ordered. cs11 19:58 19:57 Potassium Chloride in 100cc sterile water 10 mEq IV at 100 mL/hr once over 1 hrs le ordered. le Attachments: 18:55 [facility] [place] [facility] Payment Agreement ks16 20:14 Admission Orders kb5 12/30 21:11 T-Sheet-- Draft Copy klr 22:13 ECG/EKG klr Chart Complete MTDD
--- NOTE | 2016-12-31 21:33 | EDDOCDS ---
Nurse's Notes [facility] Name: Saba Mahmood Age: 66 yrs Sex: Female : 1950 Arrival Date: 12/29/2016 Time: 18:22 Bed 10 Private MD: Diagnosis: Displaced oblique fracture of shaft of right tibia-distal;Fracture of shaft of fibula-proximal, right Presentation: 12/29 18:42 Presenting complaint: EMS states: Patient was bowling and her right leg went one way js13 and she went the other. Patients right lower leg hurting. No immobilizer applied. Adult Sepsis Screening: The patient does not have new or worsening altered mentation. Patient's respiratory rate is less than 22. Systolic blood pressure is greater than 100. Patient has a qSOFA score of 0- Negative Sepsis Screen. Suicide/Homicide risk assessment- the patient denies having any suicidal and/or homicidal ideations and does not present with any other emotional, behavioral or mental health complaints. Status: Patient is not a service assistant or dependent. Transition of care: patient was not received from another setting of care. Care prior to arrival: See EMS report. 18:42 Acuity: RK Level 3 js13 18:42 Method Of Arrival: Ambulance js13 Triage Assessment: 18:50 General: Appears uncomfortable, Behavior is appropriate for age, cooperative. Pain: js13 Location: right leg Pain currently is 8 out of 10 on a pain scale. Neurological: Level of Consciousness is awake, alert, Oriented to person, place, time. Respiratory: Airway is patent Respiratory effort is even, unlabored, Respiratory pattern is regular, symmetrical. Derm: Skin is pink, warm & dry. Musculoskeletal: Circulation, motion, and sensation intact Range of motion limited in right knee and right ankle Bony deformity noted of right leg. Historical: - Allergies: no known allergies; - Home Meds: 1. Klor-Con M20 20 mEq Oral TbTQ 1 tab 2 times per day 2. atenolol 25 mg Oral tab 1 tab once daily 3. Vitamin D Oral 50,000 unit monthly 4. chlorthalidone 25 mg Oral tab 1 tab once daily 5. amlodipine 5 mg Oral tab 1 tab once daily 6. atorvastatin 10 mg oral tab 1 tab once daily 7. aspirin 81 mg Oral tab 1 tab once daily 8. Vitamin C 500 mg Oral cpER daily 9. multivitamin Oral tab daily 10. Fish Oil 1,000 mg Oral cap twice a day 11. Calci-Chew 500 mg calcium (1,250 mg) Oral chew 12. CoQ-10 100 mg oral cap 2 tab daily - PMHx: Hypertension; Hypercholesterolemia; osteopenia; - PSHx: Adenoidectomy; Tonsillectomy; - Social history: Smoking status: Patient states was never smoker of tobacco. No barriers to communication noted, The patient speaks fluent Faroese. - Family history: Not pertinent. - : The pt / caregiver states he / she is not on anticoagulants. Home medication list is obtained from the patient. - Exposure Risk Screening:: None identified. Screenin:54 Screening information is obtained from the patient. Fall risk: At risk due to gait js13 disturbance, injury. Assistance ADL's: requires no assistance with activities of daily living. Abuse/DV Screen: The patient / caregiver reports he/she is: not in a situation that causes fear, pain or injury. Nutritional screening: No deficits noted. Advance Directives: There is no active DNR order. home support is adequate. Assessment: 19:48 General: Appears in no apparent distress, comfortable, Behavior is cooperative. mlc General: IV fluids infusing per order. Pain: Location: right rodríguez Pain currently is 5 out of 10 on a pain scale. Neurological: Level of Consciousness is awake, alert, obeys commands, Oriented to person, place, time. Respiratory: Airway is patent Respiratory effort is even, unlabored, Respiratory pattern is regular. Derm: Skin is normal, Swollen area noted on right rodríguez and anterior aspect of right ankle. Musculoskeletal: Bony deformity noted of right rodríguez. Vital Signs: 18:34 BP 152 / 72; Pulse 72; Resp 18; Temp 98.6(O); Pulse Ox 100% on R/A; Weight 65.77 kg; dem1 Height 5 ft. 3 in. (160.02 cm); Pain 9/10; 19:39 BP 142 / 66; Pulse 63; Resp 18; Pulse Ox 98% ; Pain 5/10; mlc 20:28 BP 137 / 65; Pulse 62; Resp 18; Temp 98.3(O); Pulse Ox 96% on R/A; Pain 5/10; joel 18:34 Body Mass Index 25.69 (65.77 kg, 160.02 cm) dem1 Vitals: 18:34 Log In Time N/A - ambulance arrival. dem1 ED Course: 18:23 Patient visited by Margarita Carter, Physical Education Professor. deg 18:23 Patient moved to Waiting deg 18:24 Ivis Conn,JUSTYN is Primary Nurse. deg 18:24 Patient moved to 10 deg 18:29 [facility] Cain FNP [facility]. le 18:35 Patient visited by Dominique Butler. dem1 18:37 Patient visited by Suzy Cain FNP. le 18:37 Patient visited by Suzy Cain FNP. le 18:44 Triage Initiated js13 18:54 The patient / caregiver is instructed regarding the plan of care and ED course. js13 18:54 Inserted saline lock: 18 gauge in left antecubital area and blood collected. The js13 patient tolerated the procedure well. No procedures done that require assistance. Labs drawn. (by ED staff). Sent per order to lab. 18:55 Patient visited by Ivis Conn RN. js13 18:55 [facility] Payment Agreement was scanned into [employer] and attached to record. ks16 18:59 Patient name changed from Saba\S\\S\Wood\S\ to Saba\S\ \S\Wood. EDMS 19:23 Sheridan Gonzalez,JUSTYN is Primary Nurse. mlc 19:26 EKG done. (by ED staff). Reviewed by Suzy SORIA. mdr 19:27 Patient visited by Tab Greco PCA. mdr 19:34 Ag Stoll is Hospitalizing Provider. le 19:44 Tibia/Fibula Returned. EDMS 19:44 Ankle, Ap-Lat Returned. EDMS 19:44 Knee, Ap, Lat Returned. EDMS 19:50 Patient visited by Sheridan Gonzalez RN. mlc 19:55 Quentin Escoto DO is Attending Physician. cs11 20:14 Admission Orders was scanned into [employer] and attached to record. kb5 20:45 Chest, 1 View Returned. EDMS 02 21:11 T-Sheet-- Draft Copy was scanned into [employer] and attached to record. klr 22:13 ECG/EKG was scanned into [employer] and attached to record. klr 12/31 09:53 EKG-ADULT Returned. EDMS 09:54 Tibia, Fibula lower leg Returned. EDMS Administered Medications: 12/29 18:53 Drug: morphine 4 mg [morphine 4 mg/mL intravenous cartridge (1 mL)] Route: IVP; Site: js13 left antecubital; 19:39 Follow up: BP 142 / 66; Pulse 63 bpm; Resp 18 bpm; Pulse Ox 98% ; Pain 5/10 Adult; mlc Response: Pain is decreased 19:48 Drug: morphine 4 mg [morphine 4 mg/mL intravenous cartridge (1 mL)] Route: IVP; Site: mlc left antecubital; 19:48 Drug: NS 0.9% 1000 ml [sodium chloride 0.9 % intravenous solution] Route: IV; Rate: 100 mlc mL/hr; Site: left antecubital; 19:58 CANCELLED (Other Intervention Used): Potassium Chloride in 100cc sterile water 10 mEq le IV at 100 mL/hr once over 1 hrs 20:18 Drug: Potassium Chloride 20 mEq [potassium chloride ER 10 mEq tablet,extended release mlc (2 tabs)] Route: PO; Order Results: Lab Order: CBC; SPEC'M 12/29/16 18:41 Test: WHITE BLOOD COUNT; Value: 8.4; Range: 4.0-10.0; Units: K/mm3; Status: F Test: RED BLOOD COUNT; Value: 4.91; Range: 4.00-5.40; Units: M/mm3; Status: F Test: HEMOGLOBIN; Value: 14.3; Range: 12.0-16.0; Units: g/dl; Status: F Test: HEMATOCRIT; Value: 41.8; Range: 36.0-47.0; Units: %; Status: F Test: MEAN CORPUSCULAR VOLUME; Value: 85.1; Range: 80.0-96.0; Units: fl; Status: F Test: MEAN CORPUSCULAR HEMOGLOBIN; Value: 29.1; Range: 27.0-33.0; Units: pg; Status: F Test: MEAN CORPUSCULAR HGB CONC; Value: 34.2; Range: 32.0-36.5; Units: g/dl; Status: F Test: RED CELL DISTRIBUTION WIDTH; Value: 12.8; Range: 11.5-14.5; Units: %; Status: F Test: PLATELET COUNT, AUTOMATED; Value: 251; Range: 150-450; Units: k/mm3; Status: F Lab Order: GRACIE PAN 12/29/16 18:41 Test: GLUCOSE, FASTING; Value: 124; Range: 80-110; Abnormal: Above high normal; Units: MG/DL; Status: F Test: BLOOD UREA NITROGEN; Value: 19; Range: 7-18; Abnormal: Above high normal; Units: MG/DL; Status: F Test: CREATININE FOR GFR; Value: 0.75; Range: 0.55-1.02; Units: MG/DL; Status: F Test: GLOMERULAR FILTRATION RATE; Value: > 60.0; Range: >45; Status: F Test: SODIUM LEVEL; Value: 140; Range: 136-145; Units: MEQ/L; Status: F Test: POTASSIUM SERUM; Value: 3.3; Range: 3.5-5.1; Abnormal: Below low normal; Units: MEQ/L; Status: F Test: CHLORIDE LEVEL; Value: 104; Range: 98-107; Units: MEQ/L; Status: F Test: CARBON DIOXIDE LEVEL; Value: 24; Range: 21-32; Units: MEQ/L; Status: F Test: ANION GAP; Value: 12; Range: 8-16; Units: MEQ/L; Status: F Test: CALCIUM LEVEL; Value: 9.7; Range: 8.8-10.2; Units: MG/DL; Status: F Test Note: ; Units are mL/min/1.73 m2 Chronic Kidney Disease Staging per NKF: Stage I & II GFR >=60 Normal to Mildly Decreased Stage III GFR 30-59 Moderately Decreased Stage IV GFR 15-29 Severely Decreased Stage V GFR <15 Very Little GFR Left ESRD GFR <15 on MACHINE SHOP SPECIALIST Radiology Order: Tibia/Fibula Test: Tibia/Fibula REASON FOR EXAMINATION: Trauma; Clinical: Trauma.; ; Technique: AP and lateral views.; ; Findings:; There are fractures involving the proximal fibular diaphysis and distal tibial; diaphysis. No subcutaneous emphysema or foreign body.; ; Impression:; Fractures of the proximal fibular and distal tibial shafts.; ; ; Signed by; Lee Tellez MD 12/29/2016 07:18 P; Radiology Order: Knee, Ap, Lat Test: Knee, Ap, Lat REASON FOR EXAMINATION: Trauma; Clinical: Trauma.; ; Technique: AP and lateral views of the right knee.; ; Findings:; There is a comminuted nondisplaced fracture of the proximal fibular diaphysis.; Age-related changes at the knee joint noted. No subcutaneous emphysema or; radiodense foreign body.; ; Impression:; Comminuted nondisplaced fracture of the proximal fibular diaphysis.; ; ; Signed by; Lee Tellez MD 12/29/2016 07:20 P; Radiology Order: Ankle, Ap-Lat Test: Ankle, Ap-Lat REASON FOR EXAMINATION: Trauma; Clinical: Trauma.; ; Technique: AP and lateral views of the right ankle.; ; Findings:; There is an oblique fracture of the distal tibial diaphysis with approximately 11; mm of displacement. No subcutaneous emphysema or radiodense foreign body.; ; Impression:; Oblique fracture of the distal tibial diaphysis.; ; ; Signed by; Lee Tellez MD 12/29/2016 07:19 P; Radiology Order: EKG-ADULT Test: EKG-ADULT REASON FOR EXAMINATION: pre-op, medical clearance; Stationary ECG Study; [facility] - ED; ; Test Date: 2016-12-29; Pat Name: SABA [place] Department:; Room: [place] [address]; Gender: F Human Relations Professor: ; : 1950 Requested By: SUZY SORIA; Order Number: [id number] Reading MD: Corry Davis; Measurements; Intervals [place]; Rate: 62 P: 60; NH: 172 QRS: 20; QRSD: 94 T: 6; QT: 399; QTc: 408; Interpretive Statements; SINUS RHYTHM; NSTTW ABNORMALITY; NO PRIOR FOR COMPARISON; Electronically Signed On 12-30-2016 15:19:58 EST by Corry Davis; Radiology Order: Chest, 1 View Test: Chest, 1 View REASON FOR EXAMINATION: pre-op medical clearance; Clinical: Preoperative assessment .; ; Comparison: None .; ; Findings:; The mediastinum and cardiac silhouette are stable and within normal limits for; portable technique. The lung alvarado are clear without acute consolidation,; effusion, or pneumothorax. Skeletal structures are intact.; ; Impression:; Normal portable chest x-ray; ; ; Signed by; Lee Tellez MD 12/29/2016 07:37 P; Radiology Order: Tibia, Fibula lower leg Test: Tibia, Fibula lower leg REASON FOR EXAMINATION: DISTAL TIBIA FRACTURE RIGHT; Clinical: Fracture.; ; Technique: Intraoperative fluoroscopic imaging.; ; Findings:; Images demonstrate the patient to be status post open reduction and fixation for; distal tibial fracture. Satisfactory alignment and hardware placement noted.; ; Total fluoroscopic time 14 seconds.; ; Impression:; Status post open reduction and fixation for distal tibial fracture.; ; ; Signed by; Lee Tellez MD 12/30/2016 07:55 A; Outcome: 19:34 Decision to Hospitalize by Provider. justin 20:28 Discharge Assessment: patient administered narcotics - yes. Patient was admitted to the [facility] or transferred to another facility. The following High Risk Discharge criteria are identified: None. Admitted to OR accompanied by nurse, via stretcher, with chart. Condition: unchanged. No special radiology studies were completed. Property :Personal belongings accompany Pt. 20:33 Patient left the ED. joel Signatures: Dispatcher [employer] EDMS Margarita Carter, Physical Education Professor Unit deg Kathy Mott RN RN jan Bancroft, Kristopher, BIOMEDICAL TECHNICIAN BIOMEDICAL TECHNICIAN kb5 Suzy Cain, PUBLIC HEALTH VETERINARIAN PUBLIC HEALTH VETERINARIAN Dominique Vázquez dem1 Ivis ConnRN RN Quentin Kingsley, DO DO cs11 Sheridan Gonzalez RN RN mlc Rick, Mitchell, BIOMEDICAL TECHNICIAN BIOMEDICAL TECHNICIAN Snehal Ho, Reg Reg ks16 Mona Guajardo Chart Complete MTDD
--- NOTE | 2016-12-31 21:33 | EDDOCDS ---
Physician Documentation [facility] Name: Britta Mahmood Age: 66 yrs Sex: Female : 1950 Arrival Date: 12/29/2016 Time: 18:22 Bed 10 Private MD: Disposition: 12/29/16 19:34 Hospitalization ordered by Ag Stoll for Observation. Preliminary diagnosis are Displaced oblique fracture of shaft of right tibia - distal, Fracture of shaft of fibula - proximal, right. - Bed requested for Admit. - Status is Observation. joel - Condition is Stable. - Problem is new. - Symptoms are unchanged. Historical: - Allergies: no known allergies; - Home Meds: 1. Klor-Con M20 20 mEq Oral TbTQ 1 tab 2 times per day 2. atenolol 25 mg Oral tab 1 tab once daily 3. Vitamin D Oral 50,000 unit monthly 4. chlorthalidone 25 mg Oral tab 1 tab once daily 5. amlodipine 5 mg Oral tab 1 tab once daily 6. atorvastatin 10 mg oral tab 1 tab once daily 7. aspirin 81 mg Oral tab 1 tab once daily 8. Vitamin C 500 mg Oral cpER daily 9. multivitamin Oral tab daily 10. Fish Oil 1,000 mg Oral cap twice a day 11. Calci-Chew 500 mg calcium (1,250 mg) Oral chew 12. CoQ-10 100 mg oral cap 2 tab daily - PMHx: Hypertension; Hypercholesterolemia; osteopenia; - PSHx: Adenoidectomy; Tonsillectomy; - Social history: Smoking status: Patient states was never smoker of tobacco. No barriers to communication noted, The patient speaks fluent Maltese. - Family history: Not pertinent. - : The pt / caregiver states he / she is not on anticoagulants. Home medication list is obtained from the patient. - Exposure Risk Screening:: None identified. Vital Signs: 12/29 18:34 BP 152 / 72; Pulse 72; Resp 18; Temp 98.6(O); Pulse Ox 100% on R/A; Weight 65.77 kg / dem1 145 lbs; Height 5 ft. 3 in. (160.02 cm); Pain 9/10; 19:39 BP 142 / 66; Pulse 63; Resp 18; Pulse Ox 98% ; Pain 5/10; mlc 20:28 BP 137 / 65; Pulse 62; Resp 18; Temp 98.3(O); Pulse Ox 96% on R/A; Pain 5/10; nov 18:34 Body Mass Index 25.69 (65.77 kg, 160.02 cm) dem1 MDM: 18:31 IV Saline Lock ordered. le 18:31 morphine 4 mg IVP every 15 minutes; Document pain score/vitals after each dose (Hold if le SBP < 90mmHg) x2 ordered. 18:32 Tibia/Fibula Ordered. EDMS 18:54 Financial registration complete. [email or web address] 18:55 [facility] Payment Agreement was scanned into [employer] and attached to record. ks16 19:12 Knee, Ap, Lat Ordered. EDMS 19:12 Ankle, Ap-Lat Ordered. EDMS 19:15 Undress patient ordered. le 19:16 ECG WITH READING ER PHYS+CARDIAG ordered. EDMS 19:16 CBC Ordered. EDMS 19:16 BMP Ordered. EDMS 19:17 Chest, 1 View Ordered. EDMS 19:37 BMP Reviewed. le 19:37 CBC Reviewed. le 19:38 NS 0.9% 1000 ml IV at 100 mL/hr continuous ordered. le 19:58 Potassium Chloride Extended Release Tablet 20 mEq PO once ordered. le 20:14 Admission Orders was scanned into [employer] and attached to record. kb5 20:37 Tibia, Fibula lower leg Ordered. EDMS 12/30 21:11 T-Sheet-- Draft Copy was scanned into [employer] and attached to record. klr 22:13 ECG/EKG was scanned into [employer] and attached to record. klr 12/31 09:39 REGULAR DIET ordered. EDMS 09:41 PHYSICAL THERAPY EVAL ONLY ordered. EDMS Administered Medications: 12/29 18:53 Drug: morphine 4 mg [morphine 4 mg/mL intravenous cartridge (1 mL)] Route: IVP; Site: [id number] left antecubital; 19:39 Follow up: BP 142 / 66; Pulse 63 bpm; Resp 18 bpm; Pulse Ox 98% ; Pain 5/10 Adult; mlc Response: Pain is decreased 19:48 Drug: morphine 4 mg [morphine 4 mg/mL intravenous cartridge (1 mL)] Route: IVP; Site: mlc left antecubital; 19:48 Drug: NS 0.9% 1000 ml [sodium chloride 0.9 % intravenous solution] Route: IV; Rate: 100 mlc mL/hr; Site: left antecubital; 19:58 CANCELLED (Other Intervention Used): Potassium Chloride in 100cc sterile water 10 mEq le IV at 100 mL/hr once over 1 hrs 20:18 Drug: Potassium Chloride 20 mEq [potassium chloride ER 10 mEq tablet,extended release mlc (2 tabs)] Route: PO; Signatures: Dispatcher [employer] EDMS Kathy Mott RN RN jan Bancroft, Kristopher, WASTEWATER ANALYST WASTEWATER ANALYST kb5 Suzy Cain, ADMINISTRATIVE TECHNICIAN ADMINISTRATIVE TECHNICIAN Ivis Mccain,RN RN Quentin Kingsley, DO DO cs11 Snehal Altman, Reg Reg ks16 Mona Guajardo Mandy RN mlc The chart was reviewed and I authenticate all verbal orders and agree with the evaluation and treatment provided.Corrections: (The following items were deleted from the chart) 19:12 18:32 Knee, complete+XR ordered. EDMS EDMS 19:13 18:32 Ankle, complete+XR ordered. EDPA EDMS 19:58 19:56 Potassium Chloride in 100cc sterile water 10 mEq IV at 100 mL/hr once over 1 hrs le ordered. cs11 19:58 19:57 Potassium Chloride in 100cc sterile water 10 mEq IV at 100 mL/hr once over 1 hrs le ordered. le Attachments: 18:55 [facility] Payment Agreement [email or web address] 20:14 Admission Orders kb5 12/30 21:11 T-Sheet-- Draft Copy klr 22:13 ECG/EKG klr Chart Complete MTDD
== END 2016-12-30 06:43 | disposition home or self-care (01) ==
LOC: M ED 18:22 → M MS5PR 19:33 → M SDC 19:50 → M MS5PR 19:50 → M ED 23:40 → M SDC 12-30 06:43
PROVIDERS: ATTEND Orthopaedic Surgery
DX: S82.241A Displaced spiral fracture of shaft of right tibia, initial encounter for closed fracture (principal); S82.444A Nondisplaced spiral fracture of shaft of right fibula, initial encounter for closed fracture; X50.0XXA Overexertion from strenuous movement or load, initial encounter; Y92.838 Other recreation area as the place of occurrence of the external cause; Y93.54 Activity, bowling; Y99.8 Other external cause status; I10 Essential (primary) hypertension; E78.00 Pure hypercholesterolemia, unspecified; Z79.82 Long term (current) use of aspirin; Z79.899 Other long term (current) drug therapy
CPT/HCPCS: 27758; 36415; 71010; 73560; 73590; 73600; 80048; 85027; 93005; 96374; 96375; 96376; 97162; 99285; C1776; G8978; G8979; G8980; J0690; J2250; J2405; J3010

== ENCOUNTER → 2017-11-30 | Outpatient (CLI) | payer OTHER | LOC: M WHC 12:46 | DX: Z12.31 Encounter for screening mammogram for malignant neoplasm of breast (principal); R92.2 Inconclusive mammogram; R92.1 Mammographic calcification found on diagnostic imaging of breast | CPT/HCPCS: 77067 ==

== ENCOUNTER → 2018-12-05 | Outpatient (CLI) | payer MEDICARE ==
[~2018-12-05] MED LIST: AMLO5TAB6 PO; ASPI1TAB PO; ATEN25TA PO; ATOR1TAB19 PO; CALC600T31 PO; CHLO25TA PO; CO Q100C PO; DRIS50003 PO; FISH1000 PO; KLOR20TA42 PO; PERC5TAB12 PO; VITA500T88 PO; VITMTA PO
--- NOTE | 2018-12-05 11:46 | REPMRS ---
Patient History The patient states she had a clinical breast exam in 11/2018. Family history of breast cancer at age 40 in sister, prostate cancer at age 48 in brother, breast cancer at age 50 or over in maternal aunt, breast cancer at age 34 in daughter. Took hormonal contraceptives for 1 month. 3D TOMOSYNTHESIS WAS PERFORMED. Digital Woman Screen Mammo: December 05, 2018 - Exam #: [id number] Bilateral CC and MLO view(s) were taken. Technologist: Dunia Santoro, Technologist Prior study comparison: November 30, 2017, digital woman screen mammo performed at [facility]. November 08, 2016, digital woman screen mammo performed at [facility]. FINDINGS: There are scattered fibroglandular densities. There has been no change in the appearance of the mammogram from the prior studies. There is a mild amount of residual fibroglandular tissue which is fairly symmetric. There is no interval development of dominant mass, architectural distortion, or clustered microcalcification suggestive of malignancy. Assessment: BI-RADS/ACR category 1 mammogram. Negative Mammogram. Recommendation Routine screening mammogram in 1 year (for women over age 40). This mammogram was interpreted with the aid of an FDA-approved computer-aided dectection system. Electronically Signed By: Adnrew Wasserman MD 12/05/18 [id number]
--- NOTE | 2018-12-11 08:43 | DEXA ---
AP SPINE L1 - L4 1.215 0.2 1.8 LT FEMUR TOTAL 0.963 -0.4 1.0 LT NECK 0.954 -0.6 1.0 RT FEMUR TOTAL 0.904 -0.8 0.5 RT NECK 0.907 -0.9 0.7 TOTAL BODY TOTAL OTHER COMMENTS: Normal bone densitometry of the spine and hips. The density of the spine has increased 13.7% since the initial exam on 02/23/2001. The spine density has increased 5.4% since the most recent exam on 11/02/2015. The density of the left hip has increased 0.4% since the initial exam on 02/23/2001. The density of the left hip has increased 0.3% since the most recent exam on 11/02/2015. The density of the right hip has increased 0.1 since the initial exam on 02/23/2001. The density of the right hip has decreased 1.6% since the most recent exam on 11/02/2015. FOLLOW-UP: Recommendation for the next bone density exam: 5 years. CARLIN
== END ==
LOC: M WHC 09:54
PROVIDERS: ATTEND Family Medicine
DX: Z12.31 Encounter for screening mammogram for malignant neoplasm of breast (principal); Z13.820 Encounter for screening for osteoporosis; M85.9 Disorder of bone density and structure, unspecified

== ENCOUNTER → 2022-03-17 | Outpatient (CLI) | payer MEDICARE ==
[~2022-03-17] MED LIST changes: +ALEN70TA82 PO; +AMLO1TAB24 PO; -AMLO5TAB6 PO; -ASPI1TAB PO; +ASPI81TA26 PO; +CALC-212 PO; +COQ-100C5 PO; +DILT0.05 PO; +ERGO500029 PO; +FURO20TA2 PO; -KLOR20TA42 PO; +METO1TAB32 PO; +POTA-141 PO; +VITA-243 PO; +XARE10TA PO
== END ==
LOC: M LABSMTC 10:38
PROVIDERS: ATTEND Anesthesiology
DX: Z01.812 Encounter for preprocedural laboratory examination (principal); Z20.822 Contact with and (suspected) exposure to COVID-19

== ENCOUNTER 2022-03-22 09:52 | Day surgery (SDC) | payer MEDICARE ==
[~2022-03-22] VITALS: Ht 160 cm; Wt 67.1 kg
[~2022-03-22 09:52] MED LIST changes: +NS 1,000 ML IV ONE
[2022-03-22] MEDS ORDERED: LIDOCAINE 2% 100MG/5ML SDV (FOR ANES.) As Ordered ONE (11:09)
[2022-03-22] MEDS ORDERED: propofoL 200 MG/20 ML VIAL As Ordered ONE ×2 (11:09→11:57)
[2022-03-22 12:25] VITALS: BP 129/61
== END 2022-03-22 12:39 | disposition home or self-care (01) ==
LOC: M OPP 09:52
PROVIDERS: ATTEND Internal Medicine Gastroenterology
DX: K63.5 Polyp of colon (principal); K57.30 Diverticulosis of large intestine without perforation or abscess without bleeding; K64.8 Other hemorrhoids; R19.5 Other fecal abnormalities; K22.89 Other specified disease of esophagus; K29.70 Gastritis, unspecified, without bleeding; R12 Heartburn; Z79.02 Long term (current) use of antithrombotics/antiplatelets; Z79.899 Other long term (current) drug therapy; Z91.048 Other nonmedicinal substance allergy status; Z87.442 Personal history of urinary calculi